=== PATIENT | female | born 1980 | race African-American/Black ===

== ENCOUNTER 2022-06-12 09:33 | Emergency (ER) | payer MEDICAID ==
[~2022-06-12] VITALS: Ht 165.1 cm; Wt 87.0 kg
[2022-06-12] MEDS ORDERED: HYDR-4622 TP (11:32)
[2022-06-12] MEDS ORDERED: DIPH25CA83 PO (11:32)
[2022-06-12 11:59] VITALS: BP 138/65
== END 2022-06-12 12:00 | disposition home or self-care (01) ==
LOC: ER 09:33
DX: S50.862A Insect bite (nonvenomous) of left forearm, initial encounter (principal); W57.XXXA Bitten or stung by nonvenomous insect and other nonvenomous arthropods, initial encounter; Y93.89 Activity, other specified; Y92.018 Other place in single-family (private) house as the place of occurrence of the external cause
CPT/HCPCS: 99282

== ENCOUNTER 2024-01-27 05:55 | Emergency (ER) | payer MEDICAID ==
[~2024-01-27] VITALS: Ht 165.1 cm; Wt 88.0 kg
[~2024-01-27 05:55] MED LIST: DIPH25CA83 PO; HYDR-4622 TP
[2024-01-27 06:25] LABS: BASOPHILS % 0.9 % (0.0-2.0); DIFFERENTIAL COMMENT 0; EOSINOPHILS % 3.9 % (0.0-5.0); HEMATOCRIT. 37.4 % (36.0-48.0); HEMOGLOBIN. 12.7 g/dL (12.0-16.0); LYMPHOCYTES % 40.7 % (20.0-50.0); MEAN CORPUSCULAR HEMOGLOBIN 29.6 pg (28.0-32.0); MEAN CORPUSCULAR HGB CONC 33.9 g/dL (31.0-37.0); MEAN CORPUSCULAR VOLUME 87.4 fL (81.0-99.0); MEAN PLATELET VOLUME 8.9 fl (7.4-10.4); MONOCYTES % 5.5 % (2.0-8.0); PLATELET 264 x1000/uL (130-400); RED BLOOD CELL COUNT 4.27 mill/uL (4.2-5.4); RED CELL DISTRIBUTION WIDTH 13.4 % (11.6-14.6); WHITE BLOOD COUNT 7.2 x1000/uL (4.5-11.0)
[2024-01-27 06:31] LABS: CHLORIDE 106 mEq/L (98-107); SODIUM 135 mEq/L (136-145)
[2024-01-27 06:32] LABS: CARBON DIOXIDE 24 mEq/L (21-32)
[2024-01-27 06:33] LABS: CALCIUM 9.4 mg/dL (8.7-10.4)
[2024-01-27 06:35] VITALS: BP 110/71; PULSE 61; RESP 18; TEMP 98.2; O2SAT 98
[2024-01-27 06:37] LABS: GLUCOSE 95 mg/dL (70-105)
[2024-01-27 06:38] LABS: B-HCG QUANTITATIVE > 1000 mIU/mL (<3); UREA NITROGEN BLOOD 9 mg/dL (9-23)
[2024-01-27 06:39] LABS: ALANINE AMINOTRANSFERASE 19 IU/L (10-49); ALBUMIN 4.1 g/dL (3.2-4.8); ASPARTATE AMINOTRANSFERASE 26 IU/L (<34)
[2024-01-27 06:40] LABS: BILIRUBIN DIRECT 0.2 mg/dL (<=3.0); BILIRUBIN TOTAL 0.5 mg/dL (0.1-1.0); PROTEIN TOTAL 6.5 g/dL (6.0-8.3)
[2024-01-27 07:35] LABS: CLARITY URINE CLEAR (CLEAR); COLOR URINE YELLOW (YELLOW); GLUCOSE URINE NEGATIVE (NEGATIVE); KETONES URINE NEGATIVE (NEGATIVE); LEUKOCYTE ESTERASE URINE TRACE (NEGATIVE); NITRITE URINE NEGATIVE (NEGATIVE); OCCULT BLOOD URINE NEGATIVE (NEGATIVE); PH URINE 6.5 (4.5-8.0); PROTEIN URINE NEGATIVE (NEGATIVE); SPECIFIC GRAVITY URINE 1.006 (1.005-1.030); UROBILINOGEN URINE 0.2 E.U./dL (0.2-1.0)
[2024-01-27 07:48] LABS: RBC URINE 0-2 /hpf (0-2); SQUAMOUS EPITHELIAL CELL URINE 1+ /lpf (RARE/1+)
[2024-01-27 07:49] LABS: WBC URINE 0-2 /hpf (0-2)
[2024-01-27 07:50] LABS: BACTERIA URINE TRACE
== END 2024-01-27 08:06 | disposition left against medical advice (07) ==
LOC: ER 05:55
DX: R10.30 Lower abdominal pain, unspecified (principal)
CPT/HCPCS: 36415; 80048; 80076; 81003; 84702; 85025